=== PATIENT | male | born 1955 | race Caucasian/White ===

== ENCOUNTER 2017-10-20 16:32 | Outpatient (CLI) | payer OTHER ==
--- NOTE | 2017-10-23 07:31 | RAD ---
LEFT HUMERUS TWO VIEWS: 10/20/17 The fracture involving the surgical neck of the humerus and proximal humeral shaft is again noted. Se e shoulder dictation for further details. The remainder of the humeral shaft appears intact with no signs of fracture distally. IMPRESSION: Proximal humeral fractures. POS: HOME
== END 2017-10-20 16:33 | disposition home or self-care (01) ==
LOC: BURRAD 16:32
PROVIDERS: ATTEND Physician Assistant
DX: W19.XXXA Unspecified fall, initial encounter (principal); S42.202A Unspecified fracture of upper end of left humerus, initial encounter for closed fracture

== ENCOUNTER 2019-04-15 13:40 | Emergency (ER) | payer OTHER ==
[2019-04-15 13:55] LABS: #Eosinphils 0.1 thou/uL (0.0-0.7); #Lymphocytes 1.5 thou/uL (1.20-3.40); #Monocytes 0.7 thou/uL (0.11-0.59); #Neutrophils 2.8 thou/uL (1.40-6.50); %Basophils 0.6 % (0.0-1.0); %Eosinophils 2.4 % (0.0-10.0); %Lymphocytes 28.7 % (21.0-51.0); %Monocytes 13.5 % (0.0-10.0); %Neutrophils 54.7 % (42.0-75.0); Mean Corpuscular HGB CONC 31.3 g/dL (32.0-36.0); Mean Corpuscular Hemoglobin 30.4 pg (27.0-31.0); Mean Corpuscular Volume 97.1 fL (78.0-98.0); Mean Platelet Volume 7.8 fL (7.4-10.4); Platelet Count 131 thou/uL (130-400); RBC Distribution Width 13.7 % (11.5-14.5); Red Blood Cell (RBC) Count 3.64 mill/uL (4.70-6.10); White Blood Cell (WBC) Count 5.1 thou/uL (4.8-10.8)
[2019-04-15 14:11] LABS: ALT (SGPT) 30 U/L (8-55); AST (SGOT) 27 U/L (5-34); Albumin 4.3 g/dL (3.4-4.8); Alkaline Phosphatase 99 U/L (40-110); Anion Gap 18 mmol/L (10-20); BUN (Urea Nitrogen) 24 mg/dL (8.4-25.7); Bilirubin, Total 0.7 mg/dL (0.2-1.2); CK (CPK) 267 U/L (30-200); Calc. Creatinine Clearance 0 mL/min (70-130); Calcium 9.1 mg/dL (7.8-10.44); Carbon Dioxide 22 mmol/L (23-31); Chloride 99 mmol/L (98-107); Estimated GFR-MDRD 32; Globulin 2.7 g/dL (2.4-3.5); Potassium 4.2 mmol/L (3.5-5.1); Sodium 135 mmol/L (136-145)
[2019-04-15 14:13] LABS: Glucose 41 mg/dL (80-115)
[2019-04-15] MEDS ORDERED: Dextrose 50% Abboject 50 ML SYRINGE ONE (14:18)
--- NOTE | 2019-04-15 16:37 | RAD ---
PORTABLE CHEST: Date: 04-15-2019 An AP portable film at 1342 is compared with an 02-06-19 study. FINDINGS: A small right pleural effusion is present. Cardiomegaly is about the same as before. There is no over t pulmonary edema. At most, the upper lobe vessels may be slightly distended, but this is an equivoca l finding at best. The cardiac pacer remains in place. IMPRESSION: 1. Cardiomegaly. 2. Small right pleural effusion. POS: HOME
== END 2019-04-15 17:33 | disposition home or self-care (01) ==
LOC: BURERS 13:40
DX: E10.649 Type 1 diabetes mellitus with hypoglycemia without coma (principal); R55 Syncope and collapse; I11.0 Hypertensive heart disease with heart failure; I50.9 Heart failure, unspecified; E78.5 Hyperlipidemia, unspecified; Z79.899 Other long term (current) drug therapy
CPT/HCPCS: 36416; 71045; 80053; 82550; 83735; 83880; 84484; 85025; 93005; 96361; 96374

== ENCOUNTER 2019-05-15 22:58 | Emergency (ER) | payer OTHER ==
[2019-05-15] MEDS ORDERED: Dextrose 50% Abboject 50 ML SYRINGE ONE (23:05)
[2019-05-15] MEDS ORDERED: Ondansetron PF 4 MG/2 ML Vial ONE (23:24)
[2019-05-15 23:37] LABS: Glucose 253 mg/dL (80-115)
[2019-05-15 23:45] LABS: ALT (SGPT) 54 U/L (8-55); AST (SGOT) 41 U/L (5-34); Alkaline Phosphatase 77 U/L (40-110); Anion Gap 14 mmol/L (10-20); BUN (Urea Nitrogen) 33 mg/dL (8.4-25.7); Bilirubin, Total 0.7 mg/dL (0.2-1.2); Calc. Creatinine Clearance 0 mL/min (70-130); Calcium 8.7 mg/dL (7.8-10.44); Carbon Dioxide 26 mmol/L (23-31); Chloride 96 mmol/L (98-107); Estimated GFR-MDRD 46; Globulin 2.2 g/dL (2.4-3.5); Glucose 235 mg/dL (80-115); Potassium 3.7 mmol/L (3.5-5.1); Protein, Total 6.2 g/dL (5.8-8.1); Sodium 132 mmol/L (136-145)
[2019-05-15 23:52] LABS: Band 1 % (5-11); Eosinophils 2 % (0-10); Hemoglobin 10.4 g/dL (14.0-18.0); Lymphocytes 29 % (21-51); MDiff Complete? YES; Mean Corpuscular Hemoglobin 30.3 pg (27.0-31.0); Mean Corpuscular Volume 91.9 fL (78.0-98.0); Mean Platelet Volume 7.3 fL (7.4-10.4); Monocytes 13 % (0-10); Neutrophil 51 % (42-75); Platelet Count 195 thou/uL (130-400); Platelet Morphology Comment Appears Adequate; RBC Distribution Width 12.9 % (11.5-14.5); Reactive Lymphocytes 2 % (0-10); Red Blood Cell (RBC) Count 3.43 mill/uL (4.70-6.10); White Blood Cell (WBC) Count 5.8 thou/uL (4.8-10.8)
[2019-05-16 00:02] LABS: CKMB 2.6 ng/mL (0-6.6)
== END 2019-05-16 00:30 | disposition home or self-care (01) ==
LOC: BURERS 22:58
DX: E10.649 Type 1 diabetes mellitus with hypoglycemia without coma (principal); E10.22 Type 1 diabetes mellitus with diabetic chronic kidney disease; E10.51 Type 1 diabetes mellitus with diabetic peripheral angiopathy without gangrene; E78.5 Hyperlipidemia, unspecified; I25.10 Atherosclerotic heart disease of native coronary artery without angina pectoris; I13.0 Hypertensive heart and chronic kidney disease with heart failure and stage 1 through stage 4 chronic kidney disease, or unspecified chronic kidney disease; N18.9 Chronic kidney disease, unspecified; I50.9 Heart failure, unspecified; Z79.899 Other long term (current) drug therapy; Z79.82 Long term (current) use of aspirin
CPT/HCPCS: 36416; 80053; 82553; 84484; 85025; 94760; 96374; J2405

== ENCOUNTER → 2019-08-12 | Day surgery (SDC) | payer OTHER ==
[2019-08-12 16:28] VITALS: BP 99/55; TEMP 97.5
[2019-08-12 21:45] LABS: #Eosinphils 0.2 thou/uL (0.0-0.7); #Lymphocytes 1.6 thou/uL (1.20-3.40); #Monocytes 0.8 thou/uL (0.11-0.59); #Neutrophils 3.6 thou/uL (1.40-6.50); %Basophils 0.2 % (0.0-1.0); %Eosinophils 2.8 % (0.0-10.0); %Lymphocytes 25.2 % (21.0-51.0); %Monocytes 13.3 % (0.0-10.0); %Neutrophils 58.5 % (42.0-75.0); Hemoglobin 10.2 g/dL (14.0-18.0); Mean Corpuscular HGB CONC 33.3 g/dL (32.0-36.0); Mean Corpuscular Hemoglobin 31.8 pg (27.0-31.0); Mean Corpuscular Volume 95.5 fL (78.0-98.0); Mean Platelet Volume 8.2 fL (7.4-10.4); Platelet Count 191 thou/uL (130-400); RBC Distribution Width 12.8 % (11.5-14.5); Red Blood Cell (RBC) Count 3.21 mill/uL (4.70-6.10); White Blood Cell (WBC) Count 6.2 thou/uL (4.8-10.8)
[2019-08-12 21:55] LABS: ALT (SGPT) 46 U/L (8-55); AST (SGOT) 36 U/L (5-34); Albumin 4.3 g/dL (3.4-4.8); Alkaline Phosphatase 112 U/L (40-110); Anion Gap 15 mmol/L (10-20); BUN (Urea Nitrogen) 42 mg/dL (8.4-25.7); Bilirubin, Total 0.7 mg/dL (0.2-1.2); Calc. Creatinine Clearance 0 mL/min (70-130); Calcium 8.7 mg/dL (7.8-10.44); Carbon Dioxide 26 mmol/L (23-31); Chloride 97 mmol/L (98-107); Estimated GFR-MDRD 31; Globulin 2.4 g/dL (2.4-3.5); Glucose 119 mg/dL (80-115); Magnesium 2.4 mg/dL (1.6-2.6); Protein, Total 6.7 g/dL (5.8-8.1); Sodium 134 mmol/L (136-145)
== END ==
LOC: BUR/OP 15:57
PROVIDERS: ATTEND Nurse Practitioner Family
DX: Z45.2 Encounter for adjustment and management of vascular access device (principal)
CPT/HCPCS: 36415; 80053; 83735; 83880; 85025

== ENCOUNTER 2019-09-30 11:01 | Emergency (ER) | payer OTHER ==
[~2019-09-30 11:01] MED LIST: Iopamidol 370 76% 100 ML VIAL ONE
[2019-09-30 11:47] LABS: ALT (SGPT) 13 U/L (8-55); AST (SGOT) 15 U/L (5-34); Albumin 3.6 g/dL (3.4-4.8); Alkaline Phosphatase 67 U/L (40-110); Anion Gap 13 mmol/L (10-20); BUN (Urea Nitrogen) 26 mg/dL (8.4-25.7); Bilirubin, Total 0.5 mg/dL (0.2-1.2); Calc. Creatinine Clearance 0 mL/min (70-130); Calcium 8.4 mg/dL (7.8-10.44); Carbon Dioxide 26 mmol/L (23-31); Chloride 98 mmol/L (98-107); Estimated GFR-MDRD 40; Globulin 2.1 g/dL (2.4-3.5); Glucose 270 mg/dL (80-115); Potassium 4.2 mmol/L (3.5-5.1); Protein, Total 5.7 g/dL (5.8-8.1); Sodium 133 mmol/L (136-145)
[2019-09-30 11:54] LABS: D-Dimer Test 7.67 *mcg/mL (0.27-0.43)
[2019-09-30 12:05] LABS: Eosinophils 10 % (0-10); Lymphocytes 4 % (21-51); MDiff Complete? YES; Mean Corpuscular HGB CONC 31.6 g/dL (32.0-36.0); Mean Corpuscular Hemoglobin 29.8 pg (27.0-31.0); Mean Corpuscular Volume 94.2 fL (78.0-98.0); Mean Platelet Volume 8.7 fL (7.4-10.4); Monocytes 3 % (0-10); Neutrophil 83 % (42-75); Platelet Count 57 thou/uL (130-400); Platelet Morphology Comment Appears Decreased; RBC Distribution Width 13.4 % (11.5-14.5); RBC Morphology Normal; Red Blood Cell (RBC) Count 3.03 mill/uL (4.70-6.10)
[2019-09-30 12:07] LABS: White Blood Cell (WBC) Count 1.3 thou/uL (4.8-10.8)
[2019-09-30 12:40] LABS: INR-International Normal Ratio 0.9
--- NOTE | 2019-09-30 12:55 | CT ---
CT OF THE BRAIN WITHOUT CONTRAST: Date: 09/30/[address] shows normal sized ventricles with no shift. No intracranial bleeding or extra-axial h ematoma seen. No sign of mass, stroke, or edema. Calvarium appears intact. Paranasal sinuses and mast oid air cells are clear. Some minor mucosal thickening is seen in the floor of the right maxillary si nus. IMPRESSION: No acute intracranial findings. Preliminary report called to Vivi in the ER at 1130 hours on 09/30/2019. CODE CR. POS: HOME
--- NOTE | 2019-09-30 13:00 | RAD ---
PORTABLE CHEST: Date: 09/30/2019 An AP portable film at 1131 hours is compared with the 08/27/2019 study. The heart is normal in size today. There is no vascular congestion or edema. No pleural effusion is p resent. The lungs are currently clear. Fractures of the left eighth and ninth ribs are present punch operator olaterally that are not seen on the prior studies. The generator of the cardiac pacer obscures some o f the ribs above this. A MediPort catheter is in place. There probably was old trauma to the left humeral neck. There is no sign of pneumothorax on this plain radiographic study. IMPRESSION: Fractures of at least the left eighth and ninth ribs posterolaterally. See CT report to follow for a dditional findings. POS: HOME
[2019-09-30] MEDS ORDERED: Fentanyl 100 MCG/2 ML VIAL ONE ×2 (13:08→13:44)
[2019-09-30] MEDS ORDERED: Ondansetron PF 4 MG/2 ML Vial ONE (13:51)
--- NOTE | 2019-09-30 14:40 | CT ---
CT ANGIO OF CHEST: Date: 09/30/[address] of the chest was done after a bolus of IV contrast. There is moderate opacification of pulmonary arteries. No defects were seen in the larger branches to suggest emboli, but small more peripheral emboli would be missed on this study. There is no sign of aortic aneurysm or dissection. No pericardial effusion seen. A small hiatal hernia is present. The major findings on the study are traumatic in nature. There are acute fractures of at least the le ft fifth through tenth ribs posterolaterally. There is a resulting small left pleural effusion and al so a small left pneumothorax (no more than about 10%). In addition, the body of the left scapula is q uite irregular and appears to contain a nondisplaced fracture. Haziness in the left lower lobe is pro bably due to compressive atelectasis and splinting. The right lung is clear. Scans into the upper abd omen showed no acute findings in the areas covered. IMPRESSION: 1. No evidence of pulmonary embolism. 2. Fractures of at least the left fifth through tenth ribs posterolaterally. 3. Small left pneumothorax (about 10%) and a small left pleural effusion. 4. Probable nondisplaced fracture of the body of the left scapula. Findings discussed with Dr. Ospina at 1313 hours on 09/30/2019. CODE CR. POS: HOME
== END 2019-09-30 13:50 | disposition short-term general hospital (02) ==
LOC: BURERS 11:01
DX: S22.42XA Multiple fractures of ribs, left side, initial encounter for closed fracture (principal); S27.0XXA Traumatic pneumothorax, initial encounter; D70.9 Neutropenia, unspecified; D69.6 Thrombocytopenia, unspecified; E10.9 Type 1 diabetes mellitus without complications; I25.10 Atherosclerotic heart disease of native coronary artery without angina pectoris; N18.9 Chronic kidney disease, unspecified; E78.5 Hyperlipidemia, unspecified; Z79.899 Other long term (current) drug therapy; W19.XXXA Unspecified fall, initial encounter
CPT/HCPCS: 70450; 71045; 71275; 80053; 83880; 84484; 85025; 85379; 85610; 96361; 96374; 96375; 96376; J2405; J3010; Q9967